=== PATIENT | male | born 1945 | race Caucasian/White ===

== ENCOUNTER 2020-01-10 20:44 | Inpatient (IN) ==
[2020-01-11] MEDS: NS 1000 ML 1,000 ML IV SCH ×2 (01:00→15:40)
[2020-01-11] MEDS ORDERED: NS 1000 ML 1,000 ML ONE (01:05)
[2020-01-11 01:39] LABS: BASOPHILS % (AUTO) 0.6 % (0.2-1.0); EOSINOPHILS % (AUTO) 0.4 % (0.9-2.9); HEMATOCRIT 36.8 % (42.0-54.0); HEMOGLOBIN 12.1 g/dL (13.5-18.0); LYMPHOCYTES # (AUTO) 2.5 X10^3/uL (1.3-2.9); LYMPHOCYTES % (AUTO) 41.9 % (21.0-51.0); MEAN CORPUSCULAR HEMOGLOBIN 27.9 pg (27.0-34.0); MEAN CORPUSCULAR HGB CONC 32.9 g/dL (33.0-35.0); MEAN CORPUSCULAR VOLUME 84.8 fL (80.0-100.0); MEAN PLATELET VOLUME 7.3 fL (7.4-11.0); MONOCYTES # (AUTO) 0.6 x10^3/uL (0.3-0.8); MONOCYTES % (AUTO) 10.3 % (0.0-13.0); NEUTROPHILS # (AUTO) 2.8 x10^3/uL (2.2-4.8); NEUTROPHILS % (AUTO) 46.8 % (42.0-75.0); PLATELET COUNT 207 X10^3/uL (150.0-450.0); RED BLOOD COUNT 4.34 X10^6/uL (4.7-6.0); RED CELL DISTRIBUTION WIDTH 17.2 % (11.6-16.5)
[2020-01-11 01:42] LABS: ABG ALLEN TEST POS; ABG BASE EXCESS 4.8 mmol/L (-2.0-2.0); ABG HCO3 29.9 mmol/L (22-26)
[2020-01-11 01:46] LABS: ALANINE AMINOTRANSFERASE 22 Units/L (12-78); ALBUMIN 2.6 g/dL (3.4-5.0); ALKALINE PHOSPHATASE 106 Units/L (46-116); ASPARTATE AMINO TRANSFERASE 33 Units/L (15-37); BLOOD UREA NITROGEN 18 mg/dL (7-18); CALCIUM 8.6 mg/dL (8.5-10.1); CARBON DIOXIDE 26.4 mmol/L (21-32); CHLORIDE 105 mmol/L (98-107); COR CA(FOR HYPOALB) 9.7 mg/dL (8.5-10.1); CREATININE 1.53 mg/dL (0.70-1.30); SODIUM 142 mmol/L (136-145); TOTAL PROTEIN 8.2 g/dL (6.4-8.2); eGFR NON BLACK RACES 48 (>60)
--- NOTE | 2020-01-11 01:51 | RAD ---
HISTORYCOVID-19, COPD EXACSTUDYCHEST, 1 VIEWCOMPARISONNoneFINDINGSThe trachea is midline. The cardiac silhouette is mildly enlarged.. Patchy bilateral pulmonary opacities/infiltrates, concerning for multifocal pneumonia. No pleural effusion or pneumothorax.. The bony thorax mediastinal wires. Surgical clips of the right axilla.IMPRESSIONPatchy bilateral pulmonary opacities/infiltrates, concerning for multifocal pneumonia. Follow-up is recommended.Electronically signed by: Gisele Pulliam (Jan 11, 2020 01:49:09)
[2020-01-11] MEDS ORDERED: REMDESIVIR 200 MG in NS 250 ML IV 250 ML IV SCH (03:00)
[2020-01-11] MEDS: ZITHROMAX INJ 500 MG VIAL 500 MG in D5W 250 ML IV 250 ML IV SCH (04:19)
[2020-01-11] MEDS: ZOSYN VIAL 4.5 GRAMS 4.5 G in NS 100 ML IV + SPIKE MINIBAG* 100 ML IV SCH ×3 (06:09→20:59)
[2020-01-11 06:12] LABS: BASOPHILS % (AUTO) 0.2 % (0.2-1.0); EOSINOPHILS % (AUTO) 0.7 % (0.9-2.9); HEMATOCRIT 35.7 % (42.0-54.0); HEMOGLOBIN 11.6 g/dL (13.5-18.0); LYMPHOCYTES # (AUTO) 2.3 X10^3/uL (1.3-2.9); LYMPHOCYTES % (AUTO) 37.2 % (21.0-51.0); MEAN CORPUSCULAR HGB CONC 32.5 g/dL (33.0-35.0); MEAN PLATELET VOLUME 7.8 fL (7.4-11.0); MONOCYTES # (AUTO) 0.8 x10^3/uL (0.3-0.8); MONOCYTES % (AUTO) 12.9 % (0.0-13.0); NEUTROPHILS # (AUTO) 3.1 x10^3/uL (2.2-4.8); PLATELET COUNT 191 X10^3/uL (150.0-450.0); RED BLOOD COUNT 4.15 X10^6/uL (4.7-6.0); RED CELL DISTRIBUTION WIDTH 17.3 % (11.6-16.5); WHITE BLOOD COUNT 6.3 X10^3/uL (3.6-10.0)
[2020-01-11 06:31] LABS: ALANINE AMINOTRANSFERASE 23 Units/L (12-78); ALBUMIN 2.5 g/dL (3.4-5.0); ALKALINE PHOSPHATASE 100 Units/L (46-116); ASPARTATE AMINO TRANSFERASE 35 Units/L (15-37); BLOOD UREA NITROGEN 19 mg/dL (7-18); CALCIUM 8.5 mg/dL (8.5-10.1); CARBON DIOXIDE 30.5 mmol/L (21-32); CHLORIDE 106 mmol/L (98-107); COR CA(FOR HYPOALB) 9.7 mg/dL (8.5-10.1); CREATININE 1.58 mg/dL (0.70-1.30); SODIUM 143 mmol/L (136-145); TOTAL PROTEIN 7.9 g/dL (6.4-8.2); eGFR NON BLACK RACES 46 (>60)
[2020-01-11] MEDS: DUONEB 0.5 MG/3 MG (3 mL) NEB SCH ×3 (06:34→17:45)
[2020-01-11 07:31] LABS: BILIRUBIN,URINE NEGATIVE (NEGATIVE); BLOOD/HEMOGLOBIN,URINE 5+ (NEGATIVE); GLUCOSE, URINE NEGATIVE (NEGATIVE); KETONES,URINE NEGATIVE (NEGATIVE); LEUKOCYTE ESTERASE ,URINE NEGATIVE (NEGATIVE); NITRITES,URINE NEGATIVE (NEGATIVE); PROTEIN,URINE 2+ (NEGATIVE); UROBILINOGEN,URINE NORMAL (NORMAL)
[2020-01-11 07:46] LABS: APPEARANCE,URINE HAZY (CLEAR); COLOR,URINE AMBER (YELLOW)
[2020-01-11 07:47] LABS: BACTERIA,URINE TRACE /HPF (NEGATIVE); MUCUS,URINE FEW /HPF (NEGATIVE); SQUAMOUS EPITHELIAL CELL,UR RARE /HPF (NEGATIVE); YEAST,URINE RARE /HPF (NEGATIVE)
[2020-01-11] MEDS: VITAMIN A PO SCH (11:45)
[2020-01-11] MEDS: ASCORBIC ACID INJ MULTI-DOSE VIAL 1,500 MG in NS 100 ML IV 100 ML IV SCH ×3 (11:45→20:58)
[2020-01-11] MEDS: ZINC SULFATE PO SCH ×2 (11:45→20:59)
[2020-01-11] MEDS: TRICOR TAB 160 MG PO SCH (11:45)
[2020-01-11] MEDS: DECADRON TAB PO SCH (11:45)
[2020-01-11] MEDS: VITAMIN D (1.25MG) PO SCH (11:45)
[2020-01-11] MEDS ORDERED: DULCOLAX TAB EC 5 MG PO PRN (11:49)
[2020-01-11] MEDS ORDERED: LOVENOX INJ 30 MG SYR SC SCH (12:00)
[2020-01-11] MEDS ORDERED: ELIQUIS ONE (13:27)
[2020-01-11] MEDS: NORVASC TAB 5 MG PO SCH (13:37)
[2020-01-11] MEDS: ELIQUIS PO SCH (13:37)
[2020-01-11] MEDS: PEPCID TAB 20 MG PO SCH ×2 (13:38→20:58)
[2020-01-11] MEDS: LYRICA CAP 75 mg PO SCH ×2 (13:38→20:58)
[2020-01-11] MEDS: FOLIC ACID TAB 1 MG PO SCH (13:39)
[2020-01-11] MEDS: NEURONTIN CAP 400 MG PO SCH ×2 (13:39→20:59)
[2020-01-11] MEDS: COLACE CAP 100 MG PO SCH (13:41)
[2020-01-11] MEDS: CYMBALTA PO SCH ×2 (13:41→20:58)
[2020-01-11] MEDS: BUSPAR PO SCH ×2 (14:48→20:59)
[2020-01-11] MEDS: REMERON PO SCH (20:59)
[2020-01-12] MEDS: DUONEB 0.5 MG/3 MG (3 mL) NEB SCH ×4 (00:20→17:30)
[2020-01-12] MEDS: ASCORBIC ACID INJ MULTI-DOSE VIAL 1,500 MG in NS 100 ML IV 100 ML IV SCH ×4 (02:42→21:19)
[2020-01-12] MEDS: ZITHROMAX INJ 500 MG VIAL 500 MG in D5W 250 ML IV 250 ML IV SCH (03:45)
[2020-01-12 06:16] LABS: BASOPHILS % (AUTO) 0.1 % (0.2-1.0); HEMATOCRIT 35.6 % (42.0-54.0); HEMOGLOBIN 11.3 g/dL (13.5-18.0); LYMPHOCYTES # (AUTO) 0.9 X10^3/uL (1.3-2.9); LYMPHOCYTES % (AUTO) 33.8 % (21.0-51.0); MEAN CORPUSCULAR HEMOGLOBIN 27.4 pg (27.0-34.0); MEAN CORPUSCULAR HGB CONC 31.9 g/dL (33.0-35.0); MEAN CORPUSCULAR VOLUME 85.8 fL (80.0-100.0); MEAN PLATELET VOLUME 7.8 fL (7.4-11.0); MONOCYTES # (AUTO) 0.4 x10^3/uL (0.3-0.8); NEUTROPHILS # (AUTO) 1.4 x10^3/uL (2.2-4.8); NEUTROPHILS % (AUTO) 50.1 % (42.0-75.0); PLATELET COUNT 204 X10^3/uL (150.0-450.0); RED BLOOD COUNT 4.15 X10^6/uL (4.7-6.0); RED CELL DISTRIBUTION WIDTH 17.3 % (11.6-16.5); WHITE BLOOD COUNT 2.7 X10^3/uL (3.6-10.0)
[2020-01-12] MEDS: BUSPAR PO SCH ×3 (06:25→21:18)
[2020-01-12] MEDS: NEURONTIN CAP 400 MG PO SCH ×3 (06:25→21:18)
[2020-01-12] MEDS: NS 1000 ML 1,000 ML IV SCH ×2 (06:25→20:15)
[2020-01-12] MEDS: ZOSYN VIAL 4.5 GRAMS 4.5 G in NS 100 ML IV + SPIKE MINIBAG* 100 ML IV SCH ×3 (06:26→21:19)
[2020-01-12 06:38] LABS: ALBUMIN 2.4 g/dL (3.4-5.0); CALCIUM 8.7 mg/dL (8.5-10.1); CARBON DIOXIDE 28.6 mmol/L (21-32); CREATININE 1.48 mg/dL (0.70-1.30); TOTAL PROTEIN 7.9 g/dL (6.4-8.2)
[2020-01-12 07:25] LABS: PLATELET MORPHOLOGY COMMENT NORMAL (NORMAL)
[2020-01-12 09:29] LABS: ABG BASE EXCESS 3.2 mmol/L (-2.0-2.0); ABG HCO3 27.9 mmol/L (22-26)
[2020-01-12] MEDS: ASPIRIN EC 81 MG PO SCH (09:34)
[2020-01-12] MEDS: CYMBALTA PO SCH ×2 (09:34→20:51)
[2020-01-12] MEDS: COLACE CAP 100 MG PO SCH (09:34)
[2020-01-12] MEDS: FOLIC ACID TAB 1 MG PO SCH (09:35)
[2020-01-12] MEDS: ELIQUIS PO SCH (09:35)
[2020-01-12] MEDS: DECADRON TAB PO SCH (09:35)
[2020-01-12] MEDS: TRICOR TAB 160 MG PO SCH (09:36)
[2020-01-12] MEDS: PEPCID TAB 20 MG PO SCH ×2 (09:36→20:51)
[2020-01-12] MEDS: LYRICA CAP 75 mg PO SCH ×2 (09:36→20:54)
[2020-01-12] MEDS: REMDESIVIR 100 MG in NS 250 ML IV 250 ML IV SCH (09:37)
[2020-01-12] MEDS: VITAMIN A PO SCH (09:37)
[2020-01-12] MEDS: ZINC SULFATE PO SCH ×2 (09:37→20:56)
[2020-01-12] MEDS: VITAMIN D (1.25MG) PO SCH (09:37)
[2020-01-12] MEDS ORDERED: REMDESIVIR 100 MG in NS 250 ML IV 250 ML IV SCH (10:00)
--- NOTE | 2020-01-12 10:27 | RAD ---
HISTORYFollow-up pneumoniaSTUDYChest AP [id number]/29/2020FINDINGSPatient is status post median sternotomy. The heart is enlarged. Bilateral infiltrates are present predominately in the upper lobes bilaterally suggestive of multifoc al pneumonia and unchanged from the prior examination. The lower lung rivers appear clear. No pleural effusions are identified. Bony thorax is unremarkable with the exception of right-sided glenohumeral degenerative joint disease.IMPRESSIONContinued cardiomegaly without congestive heart failureBilatera l upper lobe infiltrates suggestive of multifocal pneumonia, unchangedElectronically signed by: DIDIER KNAPP (Jan 12, 2020 10:25:59)
[2020-01-12] MEDS: NORVASC TAB 5 MG PO SCH (11:31)
[2020-01-12] MEDS: LIPITOR TAB 20 MG PO SCH (11:31)
[2020-01-12 14:27] VITALS: BMI 35.6
[2020-01-12] MEDS: PROzac PO SCH (15:40)
[2020-01-12] MEDS: REMERON PO SCH (20:54)
[2020-01-13] MEDS: DUONEB 0.5 MG/3 MG (3 mL) NEB SCH ×4 (00:45→16:45)
[2020-01-13] MEDS: ASCORBIC ACID INJ MULTI-DOSE VIAL 1,500 MG in NS 100 ML IV 100 ML IV SCH ×4 (02:45→21:06)
[2020-01-13] MEDS: ZITHROMAX INJ 500 MG VIAL 500 MG in D5W 250 ML IV 250 ML IV SCH (04:16)
[2020-01-13] MEDS: NEURONTIN CAP 400 MG PO SCH ×3 (05:18→21:14)
[2020-01-13] MEDS: BUSPAR PO SCH ×3 (05:18→21:15)
[2020-01-13] MEDS: ZOSYN VIAL 4.5 GRAMS 4.5 G in NS 100 ML IV + SPIKE MINIBAG* 100 ML IV SCH ×2 (05:18→14:39)
[2020-01-13 05:35] LABS: BASOPHILS % (AUTO) 0.1 % (0.2-1.0); HEMATOCRIT 33.8 % (42.0-54.0); HEMOGLOBIN 10.6 g/dL (13.5-18.0); LYMPHOCYTES # (AUTO) 0.8 X10^3/uL (1.3-2.9); LYMPHOCYTES % (AUTO) 12.4 % (21.0-51.0); MEAN CORPUSCULAR HEMOGLOBIN 27.2 pg (27.0-34.0); MEAN CORPUSCULAR HGB CONC 31.5 g/dL (33.0-35.0); MEAN CORPUSCULAR VOLUME 86.3 fL (80.0-100.0); MEAN PLATELET VOLUME 7.7 fL (7.4-11.0); MONOCYTES # (AUTO) 0.5 x10^3/uL (0.3-0.8); MONOCYTES % (AUTO) 8.4 % (0.0-13.0); NEUTROPHILS # (AUTO) 5.1 x10^3/uL (2.2-4.8); NEUTROPHILS % (AUTO) 79.1 % (42.0-75.0); PLATELET COUNT 214 X10^3/uL (150.0-450.0); RED BLOOD COUNT 3.91 X10^6/uL (4.7-6.0); RED CELL DISTRIBUTION WIDTH 17.2 % (11.6-16.5); WHITE BLOOD COUNT 6.4 X10^3/uL (3.6-10.0)
[2020-01-13 05:42] LABS: ALBUMIN 2.4 g/dL (3.4-5.0); CALCIUM 8.3 mg/dL (8.5-10.1); CARBON DIOXIDE 26.4 mmol/L (21-32); COR CA(FOR HYPOALB) 9.6 mg/dL (8.5-10.1); CREATININE 1.71 mg/dL (0.70-1.30); TOTAL PROTEIN 7.6 g/dL (6.4-8.2)
[2020-01-13] MEDS ORDERED: K-DUR TAB 20 MEQ PO PRN (06:21)
[2020-01-13] MEDS ORDERED: K-DUR TAB 20 MEQ PO ONE (06:26)
[2020-01-13] MEDS: ASPIRIN EC 81 MG PO SCH (09:35)
[2020-01-13] MEDS: COLACE CAP 100 MG PO SCH (09:35)
[2020-01-13] MEDS: ELIQUIS PO SCH (09:35)
[2020-01-13] MEDS: FOLIC ACID TAB 1 MG PO SCH (09:36)
[2020-01-13] MEDS: ZINC SULFATE PO SCH ×2 (09:37→21:10)
[2020-01-13] MEDS: VITAMIN D3 125 mcg (5,000 UNITS) PO SCH (09:37)
[2020-01-13] MEDS: TRICOR TAB 160 MG PO SCH (09:37)
[2020-01-13] MEDS: PROzac PO SCH (09:37)
[2020-01-13] MEDS: REMDESIVIR 100 MG in NS 250 ML IV 250 ML IV SCH (09:38)
[2020-01-13] MEDS: VITAMIN A PO SCH (09:38)
[2020-01-13] MEDS: NORVASC TAB 5 MG PO SCH (09:39)
[2020-01-13] MEDS: LIPITOR TAB 20 MG PO SCH (09:39)
[2020-01-13] MEDS: CYMBALTA PO SCH ×2 (09:39→21:13)
[2020-01-13] MEDS: LYRICA CAP 75 mg PO SCH ×2 (09:40→21:09)
[2020-01-13] MEDS: PEPCID TAB 20 MG PO SCH ×2 (09:40→21:15)
[2020-01-13] MEDS: SOLU-Medrol 125 MG VIAL IVP SCH ×3 (09:44→21:15)
[2020-01-13] MEDS: NS 1000 ML 1,000 ML IV SCH ×2 (14:00→23:49)
[2020-01-13] MEDS: DUONEB 0.5 MG/3 MG (3 mL) NEB PRN (16:45)
[2020-01-13] MEDS: REMERON PO SCH (21:14)
[2020-01-13] MEDS: PERCOCET TAB 5/325 MG PO PRN (21:23)
[2020-01-14] MEDS: DUONEB 0.5 MG/3 MG (3 mL) NEB SCH ×4 (00:15→20:08)
[2020-01-14] MEDS: ZOSYN VIAL 4.5 GRAMS 4.5 G in NS 100 ML IV + SPIKE MINIBAG* 100 ML IV SCH ×4 (00:17→22:50)
[2020-01-14] MEDS: ASCORBIC ACID INJ MULTI-DOSE VIAL 1,500 MG in NS 100 ML IV 100 ML IV SCH ×4 (02:42→21:05)
[2020-01-14] MEDS: ZITHROMAX INJ 500 MG VIAL 500 MG in D5W 250 ML IV 250 ML IV SCH (03:47)
[2020-01-14] MEDS: BUSPAR PO SCH ×3 (05:18→21:05)
[2020-01-14] MEDS: NEURONTIN CAP 400 MG PO SCH ×3 (05:19→21:05)
[2020-01-14] MEDS: SOLU-Medrol 125 MG VIAL IVP SCH ×3 (05:19→21:05)
[2020-01-14 05:24] LABS: BASOPHILS % (AUTO) 0.1 % (0.2-1.0); HEMATOCRIT 33.4 % (42.0-54.0); HEMOGLOBIN 10.7 g/dL (13.5-18.0); LYMPHOCYTES # (AUTO) 0.5 X10^3/uL (1.3-2.9); LYMPHOCYTES % (AUTO) 7.7 % (21.0-51.0); MEAN CORPUSCULAR HEMOGLOBIN 27.3 pg (27.0-34.0); MEAN CORPUSCULAR HGB CONC 32.1 g/dL (33.0-35.0); MEAN PLATELET VOLUME 7.6 fL (7.4-11.0); MONOCYTES # (AUTO) 0.3 x10^3/uL (0.3-0.8); MONOCYTES % (AUTO) 4.4 % (0.0-13.0); NEUTROPHILS # (AUTO) 5.9 x10^3/uL (2.2-4.8); NEUTROPHILS % (AUTO) 87.8 % (42.0-75.0); PLATELET COUNT 217 X10^3/uL (150.0-450.0); RED BLOOD COUNT 3.93 X10^6/uL (4.7-6.0); RED CELL DISTRIBUTION WIDTH 17.5 % (11.6-16.5); WHITE BLOOD COUNT 6.7 X10^3/uL (3.6-10.0)
[2020-01-14 05:42] LABS: ALBUMIN 2.4 g/dL (3.4-5.0); CALCIUM 8.5 mg/dL (8.5-10.1); CARBON DIOXIDE 25.6 mmol/L (21-32); COR CA(FOR HYPOALB) 9.8 mg/dL (8.5-10.1); CREATININE 1.74 mg/dL (0.70-1.30); TOTAL PROTEIN 7.7 g/dL (6.4-8.2)
--- NOTE | 2020-01-14 06:09 | RAD ---
HISTORYFollow-up pneumoniaSTUDYChest AP [id number]/30/2020FINDINGSPatient is status post median sternotomy. The heart remains enlar ged. Bilateral infiltrates suggestive of multifocal pneumonia are again identified. There has been so me improvement bilaterally. No pleural effusions are identified. Bony thorax is unremarkable.IMPRESSI ONImproving bilateral upper lobe infiltratesContinued cardiomegaly without congestive heart failureEl ectronically signed by: BEATRICE KNAPP (Jan 14, 2020 06:07:58)
[2020-01-14] MEDS: REMDESIVIR 100 MG in NS 250 ML IV 250 ML IV SCH (09:01)
[2020-01-14] MEDS: ZINC SULFATE PO SCH ×2 (09:04→21:05)
[2020-01-14] MEDS: CYMBALTA PO SCH ×2 (09:04→21:05)
[2020-01-14] MEDS: ELIQUIS PO SCH ×2 (09:04→21:05)
[2020-01-14] MEDS: PROzac PO SCH (09:04)
[2020-01-14] MEDS: VITAMIN D3 125 mcg (5,000 UNITS) PO SCH (09:05)
[2020-01-14] MEDS: COLACE CAP 100 MG PO SCH (09:05)
[2020-01-14] MEDS: PEPCID TAB 20 MG PO SCH ×2 (09:05→21:05)
[2020-01-14] MEDS: FOLIC ACID TAB 1 MG PO SCH (09:06)
[2020-01-14] MEDS: LIPITOR TAB 20 MG PO SCH (09:10)
[2020-01-14] MEDS: ASPIRIN EC 81 MG PO SCH (09:10)
[2020-01-14] MEDS: TRICOR TAB 160 MG PO SCH (09:11)
[2020-01-14] MEDS: LYRICA CAP 75 mg PO SCH ×2 (09:12→21:05)
[2020-01-14] MEDS: NORVASC TAB 5 MG PO SCH (09:13)
[2020-01-14] MEDS: VITAMIN A PO SCH (09:13)
[2020-01-14 09:46] LABS: ABG BASE EXCESS 0.9 mmol/L (-2.0-2.0); ABG HCO3 26.6 mmol/L (22-26)
[2020-01-14] MEDS: NS 1000 ML 1,000 ML IV SCH ×2 (14:00→21:00)
[2020-01-14] MEDS: DUONEB 0.5 MG/3 MG (3 mL) NEB PRN (16:45)
[2020-01-14] MEDS ORDERED: HEMOCYTE-PLUS ONE (18:07)
[2020-01-14] MEDS: HEMOCYTE-PLUS PO SCH (18:13)
[2020-01-14] MEDS ORDERED: SOLU-Medrol 40 MG VIAL ONE (20:43)
[2020-01-14] MEDS: REMERON PO SCH (21:05)
[2020-01-14] MEDS: PERCOCET TAB 5/325 MG PO PRN (21:05)
[2020-01-14] MEDS ORDERED: ROBITUSSIN DM PO PRN (22:49)
[2020-01-14] MEDS ORDERED: ROBITUSSIN DM ONE (22:53)
[2020-01-15] MEDS: DUONEB 0.5 MG/3 MG (3 mL) NEB SCH ×4 (00:40→17:05)
[2020-01-15] MEDS: ASCORBIC ACID INJ MULTI-DOSE VIAL 1,500 MG in NS 100 ML IV 100 ML IV SCH ×4 (02:45→20:58)
[2020-01-15] MEDS: NS 1000 ML 1,000 ML IV SCH (02:51)
[2020-01-15] MEDS: ZITHROMAX INJ 500 MG VIAL 500 MG in D5W 250 ML IV 250 ML IV SCH (03:40)
--- NOTE | 2020-01-15 04:12 | RAD ---
[id number], 1 BORZMZJXIANBUY92/02/2020FINDINGSThe trachea is midline. The cardiac silhouette is mildly enlarged, similar to prior exam.. Slight interval increase in bilateral patchy pulmonary opacities/infiltrates. No pleural effusion or pneumothorax.. The bony thorax is stable.IMPRESSIONSlight interval increase in bilateral patchy pulmonary opacities/infiltrates.Electronically signed by: Gisele Pulliam (Jan 15, 2020 04:09:48)
[2020-01-15 05:35] LABS: ABG ALLEN TEST POS; ABG BASE EXCESS 0.6 mmol/L (-2.0-2.0)
[2020-01-15 05:43] LABS: BASOPHILS % (AUTO) 0.1 % (0.2-1.0); HEMATOCRIT 37.4 % (42.0-54.0); HEMOGLOBIN 11.8 g/dL (13.5-18.0); LYMPHOCYTES # (AUTO) 0.5 X10^3/uL (1.3-2.9); LYMPHOCYTES % (AUTO) 7.1 % (21.0-51.0); MEAN CORPUSCULAR HEMOGLOBIN 27.2 pg (27.0-34.0); MEAN CORPUSCULAR HGB CONC 31.5 g/dL (33.0-35.0); MEAN CORPUSCULAR VOLUME 86.2 fL (80.0-100.0); MEAN PLATELET VOLUME 8.1 fL (7.4-11.0); MONOCYTES # (AUTO) 0.3 x10^3/uL (0.3-0.8); MONOCYTES % (AUTO) 3.9 % (0.0-13.0); NEUTROPHILS # (AUTO) 6.7 x10^3/uL (2.2-4.8); NEUTROPHILS % (AUTO) 88.9 % (42.0-75.0); PLATELET COUNT 211 X10^3/uL (150.0-450.0); RED BLOOD COUNT 4.34 X10^6/uL (4.7-6.0); RED CELL DISTRIBUTION WIDTH 17.9 % (11.6-16.5); WHITE BLOOD COUNT 7.5 X10^3/uL (3.6-10.0)
[2020-01-15 05:49] LABS: ALBUMIN 2.4 g/dL (3.4-5.0); CALCIUM 8.7 mg/dL (8.5-10.1); CARBON DIOXIDE 24.5 mmol/L (21-32); CREATININE 1.71 mg/dL (0.70-1.30); TOTAL PROTEIN 7.7 g/dL (6.4-8.2)
[2020-01-15] MEDS: BUSPAR PO SCH ×3 (06:18→20:59)
[2020-01-15] MEDS: NEURONTIN CAP 400 MG PO SCH ×3 (06:18→20:59)
[2020-01-15] MEDS: ZOSYN VIAL 4.5 GRAMS 4.5 G in NS 100 ML IV + SPIKE MINIBAG* 100 ML IV SCH ×3 (06:19→21:00)
[2020-01-15] MEDS: SOLU-Medrol 125 MG VIAL IVP SCH ×3 (06:19→21:00)
[2020-01-15] MEDS: PROzac PO SCH (08:51)
[2020-01-15] MEDS: LIPITOR TAB 20 MG PO SCH (08:52)
[2020-01-15] MEDS: ZINC SULFATE PO SCH ×2 (08:52→20:59)
[2020-01-15] MEDS: CYMBALTA PO SCH ×2 (08:52→20:58)
[2020-01-15] MEDS: FOLIC ACID TAB 1 MG PO SCH (08:52)
[2020-01-15] MEDS: NORVASC TAB 5 MG PO SCH (08:52)
[2020-01-15] MEDS: COLACE CAP 100 MG PO SCH (08:52)
[2020-01-15] MEDS: VITAMIN D3 125 mcg (5,000 UNITS) PO SCH (08:52)
[2020-01-15] MEDS: PEPCID TAB 20 MG PO SCH ×2 (08:53→20:59)
[2020-01-15] MEDS: HEMOCYTE-PLUS PO SCH (08:54)
[2020-01-15] MEDS: ELIQUIS PO SCH ×2 (08:54→20:58)
[2020-01-15] MEDS: TRICOR TAB 160 MG PO SCH (08:54)
[2020-01-15] MEDS: LYRICA CAP 75 mg PO SCH ×2 (08:54→20:58)
[2020-01-15] MEDS: ASPIRIN EC 81 MG PO SCH (08:54)
[2020-01-15] MEDS: VITAMIN A PO SCH (08:55)
[2020-01-15] MEDS: LASIX IVP SCH (09:48)
[2020-01-15] MEDS: REMDESIVIR 100 MG in NS 250 ML IV 250 ML IV SCH (09:50)
[2020-01-15] MEDS ORDERED: NS 1/2 1000 ML IV 1,000 ML IV ONE (16:16)
[2020-01-15] MEDS: NS 1/2 1000 ML IV 1,000 ML IV SCH (16:26)
[2020-01-15] MEDS: REMERON PO SCH (20:59)
[2020-01-15] MEDS: PERCOCET TAB 5/325 MG PO PRN (22:39)
[2020-01-16] MEDS: DUONEB 0.5 MG/3 MG (3 mL) NEB SCH ×3 (00:44→12:03)
[2020-01-16] MEDS: ASCORBIC ACID INJ MULTI-DOSE VIAL 1,500 MG in NS 100 ML IV 100 ML IV SCH ×3 (03:35→16:05)
[2020-01-16] MEDS: ZITHROMAX INJ 500 MG VIAL 500 MG in D5W 250 ML IV 250 ML IV SCH (04:42)
[2020-01-16 05:15] LABS: BASOPHILS % (AUTO) 0.2 % (0.2-1.0); HEMATOCRIT 36.5 % (42.0-54.0); HEMOGLOBIN 11.9 g/dL (13.5-18.0); LYMPHOCYTES # (AUTO) 0.4 X10^3/uL (1.3-2.9); MEAN CORPUSCULAR HEMOGLOBIN 27.7 pg (27.0-34.0); MEAN CORPUSCULAR HGB CONC 32.5 g/dL (33.0-35.0); MEAN CORPUSCULAR VOLUME 85.1 fL (80.0-100.0); MONOCYTES # (AUTO) 0.4 x10^3/uL (0.3-0.8); MONOCYTES % (AUTO) 5.9 % (0.0-13.0); NEUTROPHILS # (AUTO) 6.5 x10^3/uL (2.2-4.8); NEUTROPHILS % (AUTO) 88.9 % (42.0-75.0); PLATELET COUNT 226 X10^3/uL (150.0-450.0); RED BLOOD COUNT 4.29 X10^6/uL (4.7-6.0); WHITE BLOOD COUNT 7.3 X10^3/uL (3.6-10.0)
[2020-01-16 05:32] LABS: ALBUMIN 2.3 g/dL (3.4-5.0); CALCIUM 8.4 mg/dL (8.5-10.1); CARBON DIOXIDE 27.3 mmol/L (21-32); COR CA(FOR HYPOALB) 9.8 mg/dL (8.5-10.1); CREATININE 1.7 mg/dL (0.70-1.30); TOTAL PROTEIN 7.4 g/dL (6.4-8.2)
[2020-01-16 06:09] LABS: ABG BASE EXCESS 3.2 mmol/L (-2.0-2.0); ABG HCO3 27.9 mmol/L (22-26)
[2020-01-16 06:10] LABS: ABG ALLEN TEST POS
[2020-01-16] MEDS: NEURONTIN CAP 400 MG PO SCH ×2 (06:49→14:18)
[2020-01-16] MEDS: BUSPAR PO SCH ×2 (06:49→14:17)
[2020-01-16] MEDS: ZOSYN VIAL 4.5 GRAMS 4.5 G in NS 100 ML IV + SPIKE MINIBAG* 100 ML IV SCH ×2 (06:50→14:18)
[2020-01-16] MEDS: SOLU-Medrol 125 MG VIAL IVP SCH ×2 (06:50→14:19)
[2020-01-16] MEDS: HEMOCYTE-PLUS PO SCH (08:39)
[2020-01-16] MEDS: ASPIRIN EC 81 MG PO SCH (08:40)
[2020-01-16] MEDS: COLACE CAP 100 MG PO SCH (08:40)
[2020-01-16] MEDS: CYMBALTA PO SCH (08:41)
[2020-01-16] MEDS: ELIQUIS PO SCH (08:41)
[2020-01-16] MEDS: FOLIC ACID TAB 1 MG PO SCH (08:42)
[2020-01-16] MEDS: LASIX IVP SCH (08:42)
[2020-01-16] MEDS: LIPITOR TAB 20 MG PO SCH (08:42)
[2020-01-16] MEDS: LYRICA CAP 75 mg PO SCH (08:43)
[2020-01-16] MEDS: NORVASC TAB 5 MG PO SCH (08:43)
[2020-01-16] MEDS: PEPCID TAB 20 MG PO SCH (08:44)
[2020-01-16] MEDS: PROzac PO SCH (08:44)
[2020-01-16] MEDS: VITAMIN D3 125 mcg (5,000 UNITS) PO SCH (08:45)
[2020-01-16] MEDS: TRICOR TAB 160 MG PO SCH (08:47)
[2020-01-16] MEDS ORDERED: NS 500 ML IV 500 ML IV ONE (09:14)
[2020-01-16] MEDS: ZINC SULFATE PO SCH (09:30)
[2020-01-16] MEDS: VITAMIN A PO SCH (10:39)
[2020-01-16] MEDS: REMDESIVIR 100 MG in NS 250 ML IV 250 ML IV SCH (10:40)
--- NOTE | 2020-01-16 10:53 | RAD ---
[id number], SOBSTUDYCHEST, 1 BUUIZGPEQRESHG31/03/2020FINDINGSBilateral pneumonia is present. This has decreased on the right side and progressed on the left side.No pleural effusion or pneumothorax.The heart size is magnified.Media n sternotomy wires are present. Surgical clips in the right axilla.EKG leads are noted.IMPRESSION1. B ilateral pneumoniaElectronically signed by: Jony Light (Jan 16, 2020 10:51:23)
[2020-01-16] MEDS ORDERED: SOLU-Medrol 125 MG VIAL ONE (14:20)
[2020-01-16 15:11] VITALS: BP 176/83
[2020-01-16] MEDS: NS 1/2 1000 ML IV 1,000 ML IV SCH (16:05)
[2020-01-16] MEDS ORDERED: ZOSYN VIAL 4.5 GRAMS 4.5 G in NS 50 ML IV + SPIKE MINIBAG* 50 ML IV SCH (22:00)
== END 2020-01-16 16:40 | DRG 177 ==
LOC: ICU 20:47
PROVIDERS: ADMIT Internal Medicine; ATTEND Internal Medicine
DX: J44.1 Chronic obstructive pulmonary disease with (acute) exacerbation; J12.89 Other viral pneumonia; U07.1 COVID-19; I25.10 Atherosclerotic heart disease of native coronary artery without angina pectoris; R26.89 Other abnormalities of gait and mobility; N28.9 Disorder of kidney and ureter, unspecified